=== PATIENT | male | born 1970 | race Caucasian/White ===

== ENCOUNTER 2023-11-29 23:36 | Inpatient (IN) | payer OTHER, SELFPAY ==
[2023-11-29 19:37] VITALS: BP 150/97
[2023-11-29 19:41] VITALS: BMI 28.6
--- NOTE | 2023-11-29 20:16 | ED.GENMED ---
History of Present Illness
General
Chief Complaint: Skin Problem
Source: patient
Exam Limitations: none
Time Seen by Provider: 11/29/23 19:58
Nursing documentation reviewed up to this point in time: agreed with
Travel History
Have you had any contact with someone who has COVID-19?: No
Do you have any symptoms of coronavirus? Fever > 100 degrees, chills, cough, shortness of breath, sore throat, loss of taste or smell, muscle aches, or headache?: No
History of Present Illness
History of Present Illness:
53-year-old male brought from skilled nursing for evaluation of right toe infection. Patient is a type II diabetic however has not had meds in 3 years because he reports he has not had insurance. He has had a wound to this right great toe which was old but
recently 3 days ago started with the top of his great toe. He has peripheral neuropathy and therefore denies pain. He denies any fevers. He denies any injury.
Review of Systems
Review of Systems
Allergies reviewed?: Yes
All Other Systems: ROS reviewed and negative except as documented in HPI and ROS
Constitutional: Reports no symptoms; Denies fever, fatigue or chills
Respiratory: Reports no symptoms
Cardiac: Reports no symptoms
ABD/GI: Reports no symptoms
: Reports no symptoms
Musculoskeletal: Reports other (right great toe swelling /wound )
Skin: Reports other (wound to right great toe )
Psychiatric: Reports no symptoms
Phy Exam
General Physical Exam
General Presentation: no apparent distress
General age: appears stated age
General Skin: warm and dry
General Habitus: normal
General Mental: alert
General Hydration: appears well hydrated
Neurological Exam
Neurological Exam: alert and oriented x3
Musculoskeletal Exam
Musculoskeletal Exam: other (Right great toe with old appearing wound to the plantar aspect scab/dried blood to dorsal aspect toe is swollen and red foul smell)
Skin Exam
Skin Exam: normal color and warm/dry
Psychiatric Exam
Psychiatric Exam: normal mood/affect
Course
Orders/Labs/Results
Orders:
Orders
11/29/23 20:53
Electrocardiogram (*1) Urgent
Reason for Study: Other
Other Reason for Exam: Possible Sepsis
Cardiac Monitoring- Treatment ONCE
IV Insert/Care/Rem.- Treatment PRN
O2 Therapy [RESP] Urgent
Titrate/Wean O2 to maintain O2 sat greater than (%): 93
Special Instructions: TO MAINTAIN CONTINUOUS O2 SATS > OR = 93%
Pulse Ox/cont/shift [RESP] Urgent
Quantity: 1
Special Instructions: CONTINUOUS
11/29/23 20:54
EKG- Treatment ONCE
11/29/23 20:55
Foot, Right 3 View [CR Foot - Right Min 3 Views] Urgent
Comment:
Reason For Exam: infection
11/29/23 21:01
Complete Blood Count/With Diff Urgent
Comprehensive Metabolic Panel Urgent
Lactic Acid Q4H
Comment: ON ICE, CANCEL 2ND ORDER IF FIRST LACTIC ACID LEVEL <2
Blood Culture Q30M
MAURO Source: Blood/Venous
Specimen Description:
Comment: FROM 2 SEPARATE SITES
Blood Culture Q30M
MAURO Source: Blood/Venous
Specimen Description:
Comment: FROM 2 SEPARATE SITES
11/29/23 21:47
0.9% Sodium Chloride 1000 ml [Nss] 1,000 ml IV BOLUS
11/29/23 22:19
Insulin Aspart [NOVOLOG vial] 6 units SC NOW STA
11/29/23 22:23
Piperacillin/Tazo 3.375 Gram [Zosyn] 3.375 gram in 50 ml IV NOW
11/29/23 22:32
Urinalysis Reflex To Culture Urgent
Date Specimen was Collected: 11/29/23
Time Specimen was Collected: 20:54
Urine Microscopic Reflex Cult Urgent
11/29/23 23:00
Flush (0.9% Sodium Chloride) [Flush (Nss)] See Dose Instructions IV PER PROTOCOL
11/30/23 01:00
Lactic Acid Q4H
Comment: ON ICE, CANCEL 2ND ORDER IF FIRST LACTIC ACID LEVEL <2
Abnormal Lab Results
11/29/23 11/29/23
21:01 22:32
MPV 11.7 H fL
(7.4-10.4)
Absolute Monos (auto) 0.8 H 10^3/uL
(0.1-0.6)
Monocytes % 13.7 H %
(1.7-9.3)
Sodium 132 L mmol/L
(135-145)
BUN 22 H mg/dl
(9-20)
Glucose 355 H mg/dl
(70-99)
Urine Ketones 1+ A
(Negative)
Ur Occult Blood Reflex 1+ A
(Negative)
Urine RBC 3-6 A /HPF
(0-2)
Urine Bacteria (Reflex) Few A
(Negative)
Urine Glucose 3+ A
(Negative)
11/29/23 21:01
11/29/23 21:01
Vital Signs
Initial and Last Documented VS:
Initial Vital Signs
Temp Pulse Resp BP Pulse Ox
97.7 F 98 16 150/97 97
11/29/23 19:37 11/29/23 19:37 11/29/23 19:37 11/29/23 19:37 11/29/23 19:37
Last Documented Vital Signs
Temp Pulse Resp BP Pulse Ox
97.7 F 89 18 147/98 97
11/29/23 19:37 11/29/23 23:02 11/29/23 23:02 11/29/23 23:02 11/29/23 23:02
Florist Helper consulted with Physician
Florist Helper consulted with physician?: Yes
Name of Physician Consulted: Gagan
MDM/Problems Addressed
Differential Diagnosis Includes:
not limited to: diabetic foot ulcer
MDM/Problems Addressed:
Patient is a 53-year-old male diabetic who has not had meds in the past several years brought from [facility] for evaluation. Patient was taken to nursing home and noted to have a great toe wound. Patient reports he has had a new wound on the
great toe for the past several days. Great toe is swollen red with crusty scab appearing wound foul-smelling. He is afebrile with normal white count however with being a diabetic we will treat his diabetic wound ulcer. X-rays negative for acute
osteomyelitis. patient also has uncontrolled sugar with a sugar of 355 here in the ER(as he is taken his medicine in the past several years.) Will give fluids IV Zosyn and subcu insulin and admit.
Chronic conditions affecting care:
Diabetic however noncompliant and has had meds in years
*Pulse Oximetry
Patient hypoxic: no
*Critical Care Note
Total Time (30-74mins, 75-104mins- exclusive of procedures): Not Applicable
ED Attending Note
-
Portions of this chart may have been created with voice recognition software.� Occasional wrong word or��sound alike� substitutions may have occurred due to the inherent limitations of voice recognition software.
Discharge Plan
Departure
Patient Disposition: Admit
Date of Disposition: 11/29/23
Time of Disposition: 22:25
Admit to: Med/Surg
Admit to doctor: hospitalist
Presentation/result/management discussed w/ accepting MD/DO: Hospitalist
Patient with high blood pressure during this ER visit?: Yes
Condition: Fair
Covid-19: Not Applicable
Discharge Problem:
Diabetic foot ulcer, Acute hyperglycemia
Referrals:
UNKNOWN - PT DOES,NOT KNOW [Family Provider] -
Interventions
Interventions:
*Risk Screen - Suicide Last Done: 11/29/23 21:02
*General Assessment Last Done: 11/29/23 19:40
*Neglect/Abuse Screening Last Done: 11/29/23 21:02
ED- Fall Risk Assessment Last Done: 11/29/23 21:02
ED-Skin Assessment Last Done: 11/29/23 21:02
Discharge Date and Time
Print Language: WALLISIAN
[2023-11-29 21:10] LABS: % Basophils 0.7 % (0-2); % Eosinophils 1.6 % (0-6); % Immature Granulocytes 0.4 % (0-0.5); % Lymphocytes 34.9 % (20.5-51.1); % Monocytes 13.7 % (1.7-9.3); % Neutrophils 48.7 % (42.2-75.2); Absolute Eosinophils 0.1 10^3/uL (0-0.7); Absolute Monocytes 0.8 10^3/uL (0.1-0.6); Absolute Neutrophils 2.7 10^3/uL (1.4-6.5); Hematocrit 44.2 % (39.0-52.0); Hemoglobin 15.5 g/dL (13.0-18.0); Mean Corp Hgb Conc. 35.1 g/dL (33.0-37.0); Mean Corpuscular Hgb 28.1 pg (27.0-31.0); Mean Corpuscular Volume 80.1 fL (80.0-94.0); Mean Platelet Volume 11.7 fL (7.4-10.4); Nucleated Red Blood Cells % 0 % (-); Platelet Count 181 10^3/uL (130-400); Red Blood Cell Count 5.52 10^6/uL (4.70-6.10); Red Cell Dist. Width 12.3 % (11.5-14.5); White Blood Cell Count 5.6 10^3/uL (4.8-10.8)
[2023-11-29 21:21] LABS: Lactic Acid 1.3 mmol/L (0.7-2.0)
[2023-11-29 21:26] LABS: ALT (SGPT) 28 U/L (0-50); AST (SGOT) 24 U/L (17-59); Albumin 3.6 g/dl (3.5-5.0); Alkaline Phosphatase 119 U/L (38-126); Blood Urea Nitrogen 22 mg/dl (9-20); Carbon Dioxide 25 mmol/L (22-30); Chloride 98 mmol/L (98-107); Estimated Creatinine Clearance > 125 ml/min; Glucose 355 mg/dl (70-99); Potassium 4.5 mmol/L (3.5-5.1); Sodium 132 mmol/L (135-145); Total Bilirubin 0.6 mg/dl (0.2-1.3); Total Protein 6.9 g/dl (6.3-8.2); eGFR > 60.00
[2023-11-29] MEDS: NSS 1000 IV (21:55)
[2023-11-29] MEDS: NOVOLOG vial 6 UNITS SC (22:28)
[2023-11-29] MEDS: ZOSYN 50 IV (22:29)
[2023-11-29 22:39] LABS: Urine Albumin Negative (Neg - Trace); Urine Bilirubin Negative (Negative); Urine Character Clear (Clear); Urine Color Yellow; Urine Glucose 3+ (Negative); Urine Ketone 1+ (Negative); Urine Leukocyte Negative (Negative); Urine Nitrite Negative (Negative); Urine Occult Blood 1+ (Negative); Urine Urobilinogen Negative (Neg - 1+)
[2023-11-29 22:50] LABS: Urine Squamous Cell 0-2 /LPF (Few)
[2023-11-29 22:51] LABS: Urine Bacteria Few (Negative); Urine White Cell 0-2 /HPF (0-5)
[2023-11-29 23:02] VITALS: BP 147/98
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
--- NOTE | 2023-11-29 23:27 | EDRN ---
per previous rn, upon d/c contact [facility] Office prior to d/c, contact number [phone] (warrant unit)
[2023-11-30 00:02] VITALS: BP 135/90; BMI 27.3
[2023-11-30 00:08] LABS: Glucose - Point of Care 313 mg/dl (70-99)
--- NOTE | 2023-11-30 00:10 | PTCARENOTE ---
Pt arrived from ED via stretcher, ambulated to bed independently.aaox3, cooperative. pox 98% on RA. oriented to room. Pt admits to using crystal meth 2 days prior, Molly SANTOS made aware, UDS ordered. call márquez within reach.
[2023-11-30] MEDS: NSS 1000 IV ×2 (00:44→10:16)
[2023-11-30 01:54] LABS: Amphetamines Positive (Negative); Barbiturates Negative (Negative); Benzodiazepines Negative (Negative); Buprenorphine Negative (Negative); Cocaine Negative (Negative); Methadone Negative (Negative); Methamphetamines Positive (Negative)
[2023-11-30 01:55] LABS: Marijuana Negative (Negative); Opiates Negative (Negative); Phencyclidine Negative (Negative); Tricyclic Antidepressants Negative (Negative)
[2023-11-30 02:08] LABS: Fentanyl, Urine Negative (Negative)
[2023-11-30] MEDS: UNASYN IV ×2 (05:15→10:15)
[2023-11-30 06:28] LABS: Hemoglobin 14.9 g/dL (13.0-18.0); Mean Corp Hgb Conc. 34.7 g/dL (33.0-37.0); Mean Corpuscular Hgb 27.9 pg (27.0-31.0); Mean Corpuscular Volume 80.5 fL (80.0-94.0); Mean Platelet Volume 11.3 fL (7.4-10.4); Platelet Count 181 10^3/uL (130-400); Red Blood Cell Count 5.34 10^6/uL (4.70-6.10); Red Cell Dist. Width 12.5 % (11.5-14.5); White Blood Cell Count 8.2 10^3/uL (4.8-10.8)
[2023-11-30 07:32] LABS: Blood Urea Nitrogen 20 mg/dl (9-20); Calcium 8.7 mg/dl (8.4-10.2); Carbon Dioxide 23 mmol/L (22-30); Chloride 103 mmol/L (98-107); Estimated Creatinine Clearance > 125 ml/min; Glucose 174 mg/dl (70-99); HDL Cholesterol 28 mg/dl; LDL Cholesterol, Calculated 103 mg/dl; Potassium 3.6 mmol/L (3.5-5.1); Sodium 136 mmol/L (135-145); Total Cholesterol 153 mg/dl (50-199); Triglyceride 113 mg/dl (10-149); Very Low Density Lipoprotein 22 mg/dl (0-30); eGFR > 60.00
[2023-11-30] MEDS: GLUCOPHAGE 500 MG PO (07:41)
[2023-11-30] MEDS: NEURONTIN 100 MG PO ×3 (07:41→22:00)
[2023-11-30 07:54] VITALS: BP 145/98
[2023-11-30 08:01] LABS: Glucose - Point of Care 203 mg/dl (70-99)
[2023-11-30] MEDS: NOVOLOG FLEXPEN-LOW RESISTANCE 2 UNITS SC (08:34)
--- NOTE | 2023-11-30 08:50 | W.CS.POD ---
Consult Summary - Podiatry
-
Pt seen for diabetic foot infection of right great toe. History of callus on toe for over two months and he recently cut a piece of the skin off. He says it started to get red and swollen a few days ago.
callus debrided
minimal purulence with superficial ulcer beneath
fibrotic base of wound
recommend doppler
recommend wound care nurse
will follow tomorrow
--- NOTE | 2023-11-30 09:23 | W.PN.HOSP.TC ---
Addendum entered and electronically signed by Nic Orosco MD 11/30/23 17:03:
agrees to insulin
Original Note:
Today's Communication/Plan
-
Continue antibiotics
Await DESTIN
Await patient's decision whether he wants insulin or oral hypoglycemic agents only
Consultation
Diabetic and Dietary education consult
Patient education regarding Accu-Cheks and how to inject insulin.
Assessment / Plan
Assessment / Plan
53-year-old female with diabetes
CVS: S1-S2 normal
Chest: CTA B/L
Abdomen: Soft, NT / Bowel sounds pres
Feet -Decreased pulses, right big toe dry ulcer
No edema, normal pulses
PRINTED CIRCUIT BOARDS LAMINATOR: Non focal exam
# Diabetic toe ulcer
Ancef
Podiatry evaluation
ID evaluation
Check DESTIN
# Poorly controlled diabetes
Not on any medicines presently for the past 3 years
Started metformin 1000 mg twice daily
Hemoglobin A1c 16.5
I spoke to the patient about starting insulin as I feel that the hemoglobin A1c 16.5 is better treated with insulin. Patient was made aware about that.
He is overwhelmed and he wants to think about it and let me know if he would want insulin or not.
I made it very clear that if he is not going to take it no sense of starting.
He will think and let me know
Diabetic education and Dietery eval
Nursing also to educate patient how to check blood sugars and also inject insulin.
# Diabetic neuropathy-started on gabapentin
# Prostatic hypertrophy-OP Follow up with urology
# History Barragan's palsy
# Active smoker-cessation counseling
# DVT prophylaxis-Lovenox
# Full code
D/W RN
Anticipated Discharge: 24 - 48 hours
Subjective/Interval History
-
Date of Service: November 30, 2023
Objective Data
-
Labs:
Laboratory Results
11/29/23 11/30/23
21:01 05:41
WBC 8.2
Hgb 14.9
Hct 43.0
Plt Count 181
Sodium 132 L 136
Potassium 4.5 3.6
Chloride 98 103
Carbon Dioxide 25 23
BUN 22 H 20
Creatinine 0.7 0.7
Glucose 355 H 174 H
Calcium 9.0 8.7
Total Bilirubin 0.6
AST 24
ALT 28
Alkaline Phosphatase 119
Vital Signs:
Vital Signs
Temp Pulse Resp BP Pulse Ox
96.3 F L 93 18 145/98 93
11/30/23 07:54 11/30/23 07:54 11/30/23 07:54 11/30/23 07:54 11/30/23 07:54
I&O
11/29/23 11/30/23 12/01/23
06:59 06:59 06:59
Intake Total 980 / 980
Output Total 0 / 0
Balance 980 / 980
--- NOTE | 2023-11-30 11:13 | WOUNDNOTE ---
R GREAT TOE (SIDE OF, PLANTAR)
--- NOTE | 2023-11-30 11:15 | WOUNDNOTE ---
R PLANTAR TOE/1ST MTH
--- NOTE | 2023-11-30 11:16 | WOUNDNOTE ---
R GREAT TOE (DORSAL)
--- NOTE | 2023-11-30 11:17 | WOUNDNOTE ---
L 3RD TOE (DORSAL BASE)
--- NOTE | 2023-11-30 11:20 | WOUNDNOTE ---
[facility] RN note: Patient admitted with diabetic foot infection. Patient lives alone and has a puppy at home.
See H&P for complete history.
PMH: DM, neuropathy, 1 ppd smoker.
Wound Location and type/assessment: Patient admitted with: R great toe medial plantar full thickness to subcutaneous layer or deeper diabetic ulcer with mostly yellow necrotic tissue. R plantar 1st MTH dry callus without drainage. L dorsal base 3rd
toe callus vs scabbed ulcer. Patient wears sneakers. He wears shoe size 12. Unable to palpate pedal pulses. L foot feel cool. R foot x-ray was negative for OM.
Appetite: on 1800 calorie diet.
Pressure redistribution devices in place: [employer] Accumax. Patient moves self in bed and ambulates.
Plan: R great toe dressing changed. Heels off bed with pillow. Instructed patient local dressing changes and hand hygiene with wound care. Instructed patient he needs to follow up with bathhouse keeper when discharged. Dr. Rivas following.
Will confirm orders with Dr. Orosco and request arterial Doppler study Le's. Discussed with NAMRATA Nolen.
Care plan to be updated and will follow as needed.
[2023-11-30 12:04] LABS: Glycohemoglobin (HgbA1c) 16.5 % (4.0-5.6)
[2023-11-30 12:04] LABS: Glucose - Point of Care 300 mg/dl (70-99)
--- NOTE | 2023-11-30 12:05 | CM ---
Met with pt at bedside
Pt reports he lives alone on first floor of listed address. Home is a 2 story with 1 step to enter
Reports independent with ADL's. Has 'income'. Denies food insecurity
DME - none
SNF/HH - none in past
PCP - none
Pharm - [facility]
Has ride at d/c
strategic partnership manager will follow for d/c needs
Plan - anticipate home no needs - pt does not have PCP
[2023-11-30] MEDS: NOVOLOG FLEXPEN-LOW RESISTANCE 4 UNITS SC (12:35)
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
[2023-11-30] MEDS: GLUCOTROL XL (EXTENDED RELEASE) 2.5 MG PO (13:31)
[2023-11-30] MEDS: NOVOLOG FLEXPEN 10 UNITS SC (13:31)
[2023-11-30 14:15] LABS: Urine Albumin Negative (Neg - Trace); Urine Bilirubin Negative (Negative); Urine Character Clear (Clear); Urine Color Yellow; Urine Glucose 3+ (Negative); Urine Ketone Negative (Negative); Urine Leukocyte Negative (Negative); Urine Nitrite Negative (Negative); Urine Occult Blood Trace (Negative); Urine Specific Gravity 1.015 (<1.030); Urine Urobilinogen Negative (Neg - 1+)
--- NOTE | 2023-11-30 14:20 | PN.DE ---
Diabetes Education
- -
11/30/2023: Consult for Diabetes Education
Pt not available at this time, he is off the floor for ultrasound. Unable to provide diabetes instructions for monitor and insulin use. Will try again tomorrow
[2023-11-30 14:58] LABS: Urine Red Blood Cell 0-2 /HPF (0-2); Urine Squamous Cell 0-2 /LPF (Few); Urine White Cell 0-2 /HPF (0-5)
[2023-11-30 16:06] VITALS: BP 119/81
[2023-11-30] MEDS: ANCEF 10 IV ×2 (16:10→23:27)
[2023-11-30 16:37] LABS: Glucose - Point of Care 251 mg/dl (70-99)
[2023-11-30] MEDS: LOVENOX 40 MG SC (17:11)
[2023-11-30] MEDS: GLUCOPHAGE 1000 MG PO (17:11)
[2023-11-30] MEDS: NOVOLOG FLEXPEN-LOW RESISTANCE 3 UNITS SC (17:12)
[2023-11-30] MEDS: NOVOLOG FLEXPEN 5 UNITS SC (17:40)
[2023-11-30 21:59] LABS: Glucose - Point of Care 104 mg/dl (70-99)
[2023-11-30] MEDS: LANTUS 0.100000000000000006 UNITS SC (22:00)
[2023-11-30 23:14] VITALS: BP 147/100
[2023-11-30] MEDS: FLUSH (NSS) 2 FLUSH IV (23:27)
[2023-12-01 07:00] VITALS: BP 148/109
[2023-12-01 08:10] LABS: Glucose - Point of Care 118 mg/dl (70-99)
[2023-12-01] MEDS: ANCEF 10 IV (08:10)
[2023-12-01] MEDS: NOVOLOG FLEXPEN 5 UNITS SC ×2 (08:10→13:31)
[2023-12-01] MEDS: NEURONTIN 100 MG PO (08:10)
[2023-12-01] MEDS: GLUCOTROL XL (EXTENDED RELEASE) 2.5 MG PO (08:10)
[2023-12-01] MEDS: GLUCOPHAGE 1000 MG PO (08:10)
[2023-12-01] MEDS: NOVOLOG FLEXPEN-LOW RESISTANCE SC ×2 (08:10→13:06)
[2023-12-01] MEDS: SANTYL OINTMENT 1 APPLIC TOPICAL (08:51)
--- NOTE | 2023-12-01 09:52 | W.PN.ID1 ---
Addendum entered and electronically signed by Kristen Mortensen MD 12/01/23 13:48:
At time of discharge, transition to cephalexin 1000mg po q8h through 12/12.
Original Note:
Date of Service
Date of Service: December 01, 2023
Today's Communication
Continue cefazolin.
Assessment / Plan
# Right hallux acute cellulitis
# Right hallux diabetic ulcer
# Poorly controlled DM, neuropathy. A1c >16
# Tobacco use disorder
# Suspected PAD with ischemic toes.
- Arterial duplex results with falsely elevated ankle-brachial index. No focal stenosis identified.
- Continue cefazolin.
-Control DM
- Tobacco cessation.
Chief Complaint
-: Cellulitis
Subjective / Review of Systems
No complaints
Vital Signs / Physical Exam
Vital Signs
Vital Signs
Temp Pulse Resp BP Pulse Ox
98.5 F 90 16 148/109 96
12/01/23 07:00 12/01/23 07:00 12/01/23 07:00 12/01/23 07:00 12/01/23 07:00
Physical Exam
Constitutional: No Acute Distress
Wound: Other (right great toe + edema, mild edema, wound with yellow slough ( see below photos))
Physical Exam:
Objective Data
Lab Data
Lab Results
11/30/23 05:41
11/30/23 05:41
Estimated Creat Clear > 125 ml/min 11/30/23 05:41
Lactic Acid Cancelled 11/30/23 01:00
Total Bilirubin 0.6 mg/dl (0.2-1.3) 11/29/23 21:01
AST 24 U/L (17-59) 11/29/23 21:01
ALT 28 U/L (0-50) 11/29/23 21:01
Alkaline Phosphatase 119 U/L (38-126) 11/29/23 21:01
Most recent labs reviewed.
Micro Results:
11/29/23 21:01 Blood Culture - Preliminary
Blood/Venous No Growth in 24 hours- Final report to follow
11/29/23 21:01 Blood Culture - Preliminary
Blood/Venous No Growth in 24 hours- Final report to follow
--- NOTE | 2023-12-01 11:31 | PN.CDI ---
CDI
- -
CDI:
Physician Documentation Request
Admit Date: 11/29/23 23:36
Dear Doctor Rob,
Please review the following and provide your response in the progress notes.
Clinical Indicators:
- 11/29 Podiatry note 'diabetic foot infection of right great toe...callus debrided'
- 'minimal purulence with superficial ulcer beneath'
- 11/29 Podiatry note 'The callus with blister was de-roofed. Area of the ulceration was clean'
Could you provide, in the progress notes further clarification regarding the debridement.
Please specify the type of debridement performed:
1. Excisional Debridement - defined as removal by excision of devitalized tissue, necrosis or slough
2. Non-excisional debridement - defined as removal of devitalized tissue, necrosis or slough by such methods as irrigation, brushing, scrubbing or washing.
If the debridement was excisional, please also include:
1. Type of instrument used (#11 blade, #15 blade etc.)
2. What was excised (necrotic tissue, gangrenous tissue, slough etc.)
For excisional or non-excisional, please also include:
1. Depth of debridement (skin, subcutaneous tissue, fascia, muscle, bone etc)
2. Size and appearance of the wound (L, W, D, color of wound, drainage)
Use of terms such as suspected, likely, concern for, or probable (associated with a specific diagnosis that is being evaluated, monitored, or treated as if it exists) are acceptable and can be coded in the inpatient setting, when documented at the
time of discharge.
Thank you,
Trey Mae RN
CDI Specialist
Please use your independent medical judgment in providing your response.
[2023-12-01 11:54] LABS: Glucose - Point of Care 127 mg/dl (70-99)
--- NOTE | 2023-12-01 12:04 | PTCARENOTE ---
Diabetes Education- Met w/ Gopi for glucometer and insulin instructions. A1C 16.5%. Diagnosed w/ T2DM in 'early 30's. Was monitoring and taking Metformin but stopped about 3 yrs ago as he couldn't find a PCP. Adopted so no health hx. Provided w/
Contour NExt EZ glucometer, quick demonstration as he stated he knew how to use and then return demonstration with a result of 155 mg/dl. Discussed testing pattern ACHS and expected results and information marked in take home education booklet.
Discussed action, onset, peak and duration of both rapid and long acting insulins. Aware to check BS, inject rapid acting insulin and eat with in the onset time. Recommend to use insulin that is preferred with his insurance. Discussed symptoms and
treatment of hypoglycemia. Instructoins with good return demonstration using the insulin pen. Aware to clean off top of insulin pen and injection site with alcohol,attach needle, prime by dialing to 2 units and push the button until a drop of
insulin is seen. To reset dial to zero, dial his dose, inject at 90 [address] and [address] in [address] for a count of 10. Tke home pen needles left on nightstand for him to practice self injecting. Updates to NAMRATA Reilly who will have him self inject at lunch and
dinner. Will need RX at discharge for test strips and lancets for the COntour NExt EZ as well as insulin pens and BD Joanne needles.
--- NOTE | 2023-12-01 12:24 | W.PN.HOSP.TC ---
Today's Communication/Plan
-
Patient needs to learn how to do insulin
Will discuss with infectious disease regarding discharge planning
Sent pictures to podiatry who feels patient is much better and can be discharged from podiatry standpoint
Assessment / Plan
Assessment / Plan
53-year-old female with diabetes
CVS: S1-S2 normal
Chest: CTA B/L
Abdomen: Soft, NT / Bowel sounds pres
Feet -Decreased pulses, right big toe dry ulcer
No edema, normal pulses
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
# Diabetic toe ulcer
Ancef
Podiatry evaluation and ID appreciated
DESTIN noted- Requested Vascular to take a look and commend if needs a consult
# Poorly controlled diabetes
Not on any medicines presently for the past 3 years
Started metformin 1000 mg twice daily
Hemoglobin A1c 16.5
I spoke to the patient about starting insulin as I feel that the hemoglobin A1c 16.5 is better treated with insulin.
HE agreed and we started insulin
Sugars much better now
# Diabetic neuropathy-Started on gabapentin
# Prostatic Hypertrophy-OP Follow up with urology
# History Barragan's palsy
# Active smoker-cessation counseling
# DVT prophylaxis-Lovenox
# Full code
Discussed with podiatry
D/W RN
Anticipated Discharge: Within 24 hours
Subjective/Interval History
-
Date of Service: December 01, 2023
Objective Data
-
Vital Signs:
Vital Signs
Temp Pulse Resp BP Pulse Ox
98.5 F 90 16 148/109 96
12/01/23 07:00 12/01/23 07:00 12/01/23 07:00 12/01/23 07:00 12/01/23 07:00
I&O
11/30/23 12/01/23 12/02/23
06:59 06:59 06:59
Intake Total 980 / 980 1260 / 1260
Output Total 0 / 0 580 / 580
Balance 980 / 980 680 / 680
--- NOTE | 2023-12-01 13:50 | W.PN.UPDATE ---
Addendum entered and electronically signed by Nic Orosco MD 12/01/23 14:43:
Dr. Turner from vascular reviewed patient's imaging. Outpatient follow-up recommended. I have included his number also on patient's discharge instructions for him to follow-up.
I have printed out all his prescriptions to go with the patient in case if he is not detained.
I have also sent all prescriptions except for antibiotics (as I do not want to duplicate it) to the [facility] in [place] which is listed as his pharmacy.
Original Note:
Update Note
Progress Note Update
Discussed with infectious disease. P.o. antibiotics for discharge.
Per discussion with nursing diabetic education evaluated the patient.
Patient gave himself insulin at lunch and is comfortable.
He may be picked up by the electronics repair technician.
Will provide scripts for insulin anyways
total discharge cordination time 40 min
--- NOTE | 2023-12-01 14:50 | W.DS.TRANS ---
Addendum entered and electronically signed by Nic Orosco MD 12/01/23 15:01:
Dictation- [id number]
Original Note:
DC Summary - [employer]
-
Discharge Instructions:
Discharge Diagnosis/Procedures Right big toe ulcer, diabetes-poorly controlled,
diabetic neuropathy, enlarged prostate, active
smoker
Diet Diabetic, Carb Controlled
Activity As tolerated
Driving Restrictions As prior to admission
Instructions:
Stand-Alone Forms:
Changes to Home Medications: Yes
Discharge Medications:
DC Medications w/original date entered in [facility]
blood sugar diagnostic (Contour Next Test Strips) #200 ea 12/01/23
blood-glucose meter (Contour Next One Meter) #1 ea 12/01/23
cephalexin 500 mg capsule 1,000 mg (2 x 500 mg) PO Q8H Infection #72 caps 12/01/23
gabapentin 100 mg capsule 100 mg PO TID Neurological Condition #90 caps 12/01/23
insulin aspart U-100 100 unit/mL (3 mL) subcutaneous pen 5 unit (0.05 mL) SC AC Diabetes #15 mL 12/01/23
insulin glargine 100 unit/mL (3 mL) subcutaneous pen (Lantus Solostar U-100 Insulin) 10 unit (0.1 mL) SC QPM Diabetes #15 mL 12/01/23
lancets 21 gauge (Color Lancets) #200 ea 12/01/23
metformin 500 mg tablet 1,000 mg (2 x 500 mg) PO BID@0800,1700 Diabetes #60 tabs 12/01/23
pen needle, diabetic 32 gauge x 32' (BD Ultra-Fine Joanne Pen Needle) #200 ea 12/01/23
Home Medication Changes
all meds new
Pending Results: No
[2023-12-01 15:21] VITALS: BP 159/101
--- NOTE | 2023-12-01 15:48 | CM ---
Pt for d/c
Outstanding warrant for arrest -
[facility] office notified by RN
Pt has Rx for medications. D/c instructions to be reviewed by RN
== END 2023-12-01 16:17 | disposition other institution (70) | DRG 624 ==
LOC: 3 WEST ACU 23:36
PROVIDERS: Nurse Practitioner; Podiatrist; ADMITTING PHYSICIAN Internal Medicine; ATTENDING PHYSICIAN Hospitalist; CONSULT PHYSICIAN Internal Medicine Infectious Disease; CONSULT PHYSICIAN Podiatrist; EMERGENCY PHYSICIAN Student in an Organized Health Care Education/Training Program
PROC: 0JBQ0ZZ Excision of Right Foot Subcutaneous Tissue and Fascia, Open Approach (ICD-10-PCS; 2023-12-01)
DX: E11.621 Type 2 diabetes mellitus with foot ulcer (principal); L97.519 Non-pressure chronic ulcer of other part of right foot with unspecified severity; E11.65 Type 2 diabetes mellitus with hyperglycemia; N40.0 Benign prostatic hyperplasia without lower urinary tract symptoms; E11.42 Type 2 diabetes mellitus with diabetic polyneuropathy; F17.210 Nicotine dependence, cigarettes, uncomplicated; Z91.199 Patient's noncompliance with other medical treatment and regimen due to unspecified reason
CPT/HCPCS: 73630; 80048; 80053; 80061; 80306; 80307; 81003; 81015; 82962; 83036; 83605; 85025; 85027; 87040; 93005; 93922; 93925; 96365; 96372; 99285; 99406